=== PATIENT | male | born 1970 | race Caucasian/White ===

== ENCOUNTER 2019-01-14 19:15 | Emergency (ER) | payer OTHER ==
[2019-01-14] MEDS: BACITRACIN 0.5%/ZINC 28.35 GM OINT TOP (21:30)
== END 2019-01-14 23:03 | disposition home or self-care (01) ==
LOC: FTE 19:15
DX: L08.9 Local infection of the skin and subcutaneous tissue, unspecified (principal)
CPT/HCPCS: 99283; Z7610